=== PATIENT | female | born 1955 | race African-American/Black ===

== ENCOUNTER 2017-04-01 09:08 | Emergency (ER) | payer SELFPAY ==
[~2017-04-01] VITALS: Ht 154.9 cm; Wt 55.0 kg
[~2017-04-01 09:08] MED LIST: GABA100C4 PO; IBUP400T20 PO; IBUP800T23 PO
[2017-04-01 09:14] VITALS: BP 173/85; PULSE 88; RESP 15; TEMP 98.4; O2SAT 99
[2017-04-01 09:27] VITALS: BP 172/94; PULSE 81; RESP 18; O2SAT 100
[2017-04-01] MEDS ORDERED: ONDANSETRON HCL 4 MG/2 ML VIAL IM ONE (10:00)
[2017-04-01] MEDS ORDERED: MORPHINE SULFATE 4 MG/ML INJ IM ONE (10:00)
--- NOTE | 2017-04-01 10:11 | PD ---
HPI Chief Complaint: Back/ Neck Pain or Injury Time Seen by Provider: 09:52 Travel History International Travel<30 days: No Contact w/Intl Traveler<30days: No Traveled to known affect area: No History of Present Illness HPI The patient was seen and examined in the presence of the nurse. This patient complains of neck pain. Patient has chronic intermittent neck pain for many years. She's had multiple neck surgeries. She woke up Saturday morning, 2 days ago, and felt like she slept on it funny. She felt like she had a kink in her neck. She has rather diffuse neck pain on both sides and back. There is no injury. She denies muscle weakness or sensory loss of extremities. The pain today is worse than her usual pain. Severity is moderate. No alleviating factors. PFSH Past Medical History Depression: Yes Diminished Hearing: No Hypertension: Yes Psychiatric: Yes (PTSD, depression) Tetanus Vaccination: Unknown Influenza Vaccination: No ?: Not Menopausal: Yes : 6 Para: 5 Past Surgical History Cholecystectomy: Yes Social History Alcohol Use: No Tobacco Use: No Substance Use: Yes (MARIJUANA IN THE PAST ) Allergies-Medications (Allergen,Severity, Reaction): Uncoded Allergies: LIQUID VALIUM (Allergy, Severe, Hives, 05/09/11) Reported Meds & Prescriptions Reported Meds & Active Scripts Active Gabapentin 100 Mg Cap 100 Mg PO TID Ibuprofen 800 Mg Tab 800 Mg PO TIDPC PRN Reported Ibuprofen 400 Mg Tab 400 Mg PO DAILY PRN Review of Systems General / Constitutional: No: Fever Eyes: No: Visual changes HENT: Positive: Neck Pain, No: Headaches Cardiovascular: No: Chest Pain or Discomfort Respiratory: No: Shortness of Breath Gastrointestinal: No: Abdominal Pain Genitourinary: No: Dysuria Musculoskeletal: Positive: Myalgias, Pain Skin: No Rash Neurologic: No: Weakness Psychiatric: No: Depression Endocrine: No: Polydipsia Hematologic/Lymphatic: No: Easy Bruising Physical Exam Narrative GENERAL: Thin well-developed patient with neck pain SKIN: Focused skin assessment reveals no rash and nodules. Skin is Warm and dry. HEAD: Atraumatic. Normocephalic. EYES: Pupils equal and round. No scleral icterus. No injection or drainage. ENT: No nasal bleeding or discharge. Mucous membranes pink and moist. NECK: Trachea midline. No JVD. Patient has tenderness to the sternocleidal muscles on either side of her neck. There is no visible swelling or deformity or erythema or warmth. She also has posterior midline tenderness. CARDIOVASCULAR: Regular rate and rhythm. No murmur appreciated. RESPIRATORY: No accessory muscle use. Clear to auscultation. Breath sounds equal bilaterally. GASTROINTESTINAL: Abdomen soft, non-tender, nondistended. Hepatic and splenic margins not palpable. MUSCULOSKELETAL: No obvious deformities. No clubbing. No cyanosis. No edema. NEUROLOGICAL: Awake and alert. No obvious cranial nerve deficits. Motor grossly within normal limits. Normal speech. Sensation is intact PSYCHIATRIC: Appropriate mood and affect; insight and judgment normal. Data Data Last Documented VS Vital Signs Date Time Temp Pulse Resp B/P Pulse Ox O2 Delivery O2 Flow Rate FiO2 04/01/17 10:22 18 04/01/17 09:27 81 172/94 100 Room Air 04/01/17 09:[address] Cerv Spine W/O Contrast (04/01/17 ) Ondansetron Inj (Zofran Inj) (04/01/17 10:00) Morphine Inj (Morphine Inj) (04/01/17 10:00) MDM Medical Decision Making Medical Screen Exam Complete: Yes Emergency Medical Condition: Yes Medical Record Reviewed: Yes Differential Diagnosis Muscle strain, disc herniation, hardware failure Narrative Course I have reviewed the patient's electronic medical record. Patient has no neurologic deficit. No emergent indication for MRI I'm going to do some imaging of the neck I gave her injection of morphine and Zofran for symptom relief CT of the cervical spine shows a lot of arthritic change. No hardware failure. I reviewed the results with the patient Stable for outpatient follow-up Medication written for pain relief Diagnosis Primary Impression: Acute neck pain Additional Impression: Cervical strain, acute Qualified Code: S16.1XXA - Acute strain of neck muscle, initial encounter Additional Instructions: The patient was advised to follow up with their physician and return if they worsen. The patient was warned about potential sedation for the medications they will receive on prescription. Med/Other Pt SpecificInfo: Prescription(s) given Scripts Tramadol 50 Mg Tab50 Mg PO Q6H PRN (PAIN) #20 TAB Ref 0 Prov:Alberto Helms MD 04/01/17 Disposition: 01 DISCHARGE HOME Condition: Stable Alberto Helms MD Apr 01, 2017 10:11
--- NOTE | 2017-04-01 11:22 | RADRPT ---
EXAM DATE/TIME: 04/01/2017 10:38 [facility] COMPARISON: No previous studies available for comparison. INDICATIONS : Upper back and neck pain, no injury. RADIATION DOSE: 20.17 CTDIvol (mGy) MEDICAL HISTORY : Hypertension. SURGICAL HISTORY : Cholecystectomy. c-spine surgery in 2001 ENCOUNTER: Initial ACUITY: 1 day PAIN SCALE: 8/10 LOCATION: neck TECHNIQUE: Volumetric scanning of the cervical spine was performed. Multiplanar reconstructions in the sagittal, coronal and oblique axial planes were performed. Using automated exposure control and adjustment o f the mA and/or kV according to patient size, radiation dose was kept as low as reasonably achievable to obtain optimal diagnostic quality images. DICOM format image data is available electronically f or review and comparison. FINDINGS: VERTEBRAE: Normal vertebral body height. No fracture is identified. There is anterior plate and screw fixation e xtending from C4-C7. Osseous fusion is present between the C4-C5 and C5-C6 vertebral bodies. There is no osseous fusion between C6 and C7. The hardware demonstrates no acute finding. ALIGNMENT: No anterolisthesis or retrolisthesis is present. The craniocervical junction and C1-C2 level demonstrate no significant abnormality. C2-C3: There is decreased disc height with left facet arthrosis and there is a posterior disc osteophyte com plex with bilateral uncovertebral osteophytes. No canal stenosis is appreciated. There is moderate se verity left and mild right neural foraminal stenosis. C3-C4: There is mild decreased disc height with severe facet arthrosis bilaterally. A small central disc pro trusion is present. There may be a mild degree of spinal canal stenosis. There is moderate neural for aminal narrowing bilaterally. C4-C5: There is complete fusion between the vertebral bodies with partial fusion at the facet joints. A cent rally calcified nodule is present posteriorly. The spinal canal is not well visualized. No definite s myranda canal stenosis or neural foraminal stenosis is appreciated. C5-C6: There is osseous fusion between the vertebral bodies and partial osseous fusion of the left facet heather nt. Small posterior osteophytes are present. The canal is not well-visualized but no definite canal o r neural foraminal stenosis is identified. C6-C7: There is decreased disc height with ossification posteriorly and centrally. The canal is not well-vis ualized. No definite canal or neural foraminal stenosis is seen. C7-T1: There is decreased disc height with small ossification posterior and centrally. There is mild right f acet arthrosis. No definite canal or neural foraminal narrowing is seen. The visualized paraspinous structures demonstrates no acute finding. CONCLUSION: 1. There has been prior ACDF at C4-C7. Hardware demonstrates no acute finding. There is osseous fusio n between these vertebral bodies with the exception of C6-C7. 2. There is degenerative disc disease at the remaining levels. There may be a disc protrusion at C3-C 4 mildly narrowing the canal. 3. There is neural foraminal narrowing at C2-C3 and C3-C4 secondary to uncovertebral and facet osteop hytes. Ayad Salcido MD on April 01, 2017 at 11:13 Board Certified Radiologist. This report was verified electronically.
[2017-04-01] MEDS ORDERED: TRAM50TA PO (13:18)
[2017-04-01 13:56] VITALS: BP 157/91; PULSE 87; RESP 18; O2SAT 98
== END 2017-04-01 14:10 | disposition home or self-care (01) ==
LOC: NEPD 09:08
DX: M54.2 Cervicalgia (principal); S16.1XXA Strain of muscle, fascia and tendon at neck level, initial encounter; I10 Essential (primary) hypertension; Z86.59 Personal history of other mental and behavioral disorders; X58.XXXA Exposure to other specified factors, initial encounter
CPT/HCPCS: 72125; 96372; 99285; J2270; J2405

== ENCOUNTER 2017-04-06 11:09 | Emergency (ER) | payer SELFPAY ==
[~2017-04-06] VITALS: Ht 154.9 cm; Wt 60.0 kg
[~2017-04-06 11:09] MED LIST changes: +TRAM50TA PO
[2017-04-06 11:11] VITALS: BP 180/100; PULSE 87; RESP 15; TEMP 98.4; O2SAT 99
[2017-04-06] MEDS ORDERED: CYMB30CA PO (11:36)
[2017-04-06] MEDS ORDERED: MIRT1TAB PO (11:36)
[2017-04-06] MEDS ORDERED: KETOROLAC TROMETHAMINE 60 MG/2 ML (IM) VIAL IM ONE (11:45)
[2017-04-06] MEDS ORDERED: CYCLOBENZAPRINE HCL 10 MG TAB PO ONE (11:45)
[2017-04-06] MEDS ORDERED: CYCL1TAB29 PO (12:03)
[2017-04-06] MEDS ORDERED: IBUP400T20 PO (12:03)
--- NOTE | 2017-04-06 12:03 | PD ---
HPI Chief Complaint: Pain: Acute or Chronic Time Seen by Provider: 11:28 Travel History International Travel<30 days: No Contact w/Intl Traveler<30days: No Traveled to known affect area: No History of Present Illness HPI Patient is a 61-year-old female comes in complaining of neck pain. She was here 5 days ago for the same thing. At that time she had a CT of her neck that showed arthritis, no other acute abnormalities. She is specifically complaining of pain to the right side of her neck. She says she has a lot of pain when she tries to turn her head. She says this started after she feels like she slept wrong. 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 She has been taking tramadol without relief of her symptoms. She does have some numbness in her hands, but she says this is old. She has no new neurologic symptoms. PFSH Past Medical History Depression: Yes Diminished Hearing: No Hypertension: Yes Medical other: Yes (BILATERAL CARPAL TUNNEL SYNDROME) Psychiatric: Yes (PTSD, depression) Influenza Vaccination: No ?: Not Menopausal: Yes : 6 Para: 5 Past Surgical History Cholecystectomy: Yes Other Surgery: Yes (LEFT FOREARM SURGERY) Social History Alcohol Use: No Tobacco Use: No Substance Use: Yes (MARIJUANA IN THE PAST ) Allergies-Medications (Allergen,Severity, Reaction): Coded Allergies: morphine (Verified Adverse Reaction, Intermediate, NAUSEA/VOMITING, ) Uncoded Allergies: LIQUID VALIUM (Allergy, Severe, Hives, 05/09/11) Reported Meds & Prescriptions Reported Meds & Active Scripts Active Tramadol (Tramadol HCl) 50 Mg Tab 50 Mg PO Q6H PRN Reported Mirtazapine 7.5 Mg Tab 7.5 Mg PO HS Cymbalta DR (Duloxetine HCl) 30 Mg Capdr 30 Mg PO DAILY Review of Systems General / Constitutional: No: Fever, Chills HENT: No: Headaches, Lightheadedness Cardiovascular: No: Chest Pain or Discomfort Respiratory: No: Shortness of Breath Gastrointestinal: No: Nausea, Vomiting Musculoskeletal: Positive: Pain Skin: No Rash, No Change in Pigmentation Neurologic: No: Weakness, Dizziness Physical Exam Narrative GENERAL: Awake and alert, in no acute distress. SKIN: Focused skin assessment warm/dry. HEAD: Atraumatic. Normocephalic. EYES: Pupils equal and round. No scleral icterus. ENT: Mucous membranes pink and moist. NECK: Trachea midline. No JVD. Tender to palpation of the right trapezius muscle , no cervical spine tenderness. CARDIOVASCULAR: Regular rate and rhythm. No murmur appreciated. RESPIRATORY: No accessory muscle use. Clear to auscultation. Breath sounds equal bilaterally. MUSCULOSKELETAL: No obvious deformities. No clubbing. No cyanosis. No edema. NEUROLOGICAL: Awake and alert. No obvious cranial nerve deficits. Motor grossly within normal limits. Normal speech. Data Data Last Documented VS Vital Signs Date Time Temp Pulse Resp B/P Pulse Ox O2 Delivery O2 Flow Rate FiO2 04/06/17 11:11 98.4 87 15 180/100 99 Orders Ketorolac Inj (Toradol Inj) (04/06/17 11:45) Cyclobenzaprine (Flexeril) (04/06/17 11:45) [facility] Medical Decision Making Medical Screen Exam Complete: Yes Emergency Medical Condition: Yes Medical Record Reviewed: Yes Differential Diagnosis muscle strain vs arthritis vs fracture Narrative Course Patient is a 61-year-old female comes in complaining of neck pain. This is her second visit. Exam shows tenderness to the right trapezius muscle. Patient given Toradol and Flexeril. She'll be discharged with a prescription for Flexeril. She is advised to take ibuprofen as well to decrease inflammation. This is very clearly a muscle strain. Patient is advised follow-up with a primary care doctor. Advised to return to the ED as needed for any worsening symptoms. Diagnosis Primary Impression: Cervical strain, acute Qualified Code: S16.1XXD - Acute strain of neck muscle, subsequent encounter Patient Instructions: Cervical Strain (ED), General Instructions Additional Instructions: Take ibuprofen and Flexeril as needed for pain. Be careful as a Flexeril may make you drowsy. Follow-up with a primary care doctor. Return to the ED as needed for any worsening symptoms. Scripts Cyclobenzaprine (Flexeril)10 Mg Tab10 Mg PO TID #15 TAB Ref 0 Prov:Corrina Wills MD 04/06/17 Ibuprofen 400 Mg Glw670 Mg PO QID #20 TAB Ref 0 Prov:Corrina Wills MD 04/06/17 Disposition: 01 DISCHARGE HOME Condition: Stable Karissa Willsica B MD Apr 06, 2017 12:03
== END 2017-04-06 12:14 | disposition home or self-care (01) ==
LOC: NEPD 11:09
DX: S16.1XXA Strain of muscle, fascia and tendon at neck level, initial encounter (principal); I10 Essential (primary) hypertension; X50.0XXA Overexertion from strenuous movement or load, initial encounter; Y93.E5 Activity, floor mopping and cleaning; Y92.099 Unspecified place in other non-institutional residence as the place of occurrence of the external cause; Z59.0 Homelessness
CPT/HCPCS: 96372; 99284; J1885